=== PATIENT | female | born 1990 | race Caucasian/White ===

== ENCOUNTER 2016-08-14 03:31 | Inpatient (IN) | payer OTHER ==
[~2016-08-14] VITALS: Ht 160 cm; Wt 71.4 kg
[~2016-08-14 03:31] MED LIST: CALC-176 PO; METF500T4 PO; PRENAT PO
[2016-08-14 03:42] VITALS: Ht 160 cm; Wt 71.4 kg
[2016-08-14 03:43] VITALS: BP 124/74; PULSE 79; RESP 19
[2016-08-14] MEDS ORDERED: LACTATED RINGER'S 1,000 ML IV SCH (04:03)
--- NOTE | 2016-08-14 04:18 | TRIAGE ---
OB Triage Datetime Report Generated by CPN: 08/14/2016 04:17 Datetime: 08/14/2016 04:16 Assessment Type: Triage Maternal Assessment Level of Consciousness: Fully Conscious DTR's/Clonus: DTRs 2+; No Clonus Headache: Denies Blurred Vision: No Respiratory Effort: Unlabored; Regular Rhythm; Equal Expansion Breath Sounds, Left: Clear and Equal Breath Sounds, Right: Clear and Equal Nausea/Vomiting: Denies RUQ Epigastric Pain: Denies Facial Edema: None Fall Risk Assessment History of Falling: (0) No Secondary Diagnosis: (0) No Ambulatory Aid: (0) Bedrest/Nurse Assist IV Therapy: (0) No Gait: (0) Normal/Bedrest/Immobile Mental Status: (0) Oriented to Own Ability Fall Score: 0 Fall Risk Score Definition: No Risk: No action required Datetime: 08/14/2016 04:14 Time of Arrival: 08/14/2016 03:25 EGA: 36.4 Arrived By: Wheelchair Arrived From: Home Chief Complaint: UC'S SINCE 0200 Movement: Present Contractions: Regular Time Contractions Began: 08/14/2016 02:00 Contractions: Q5-10MIN Rupture of Membranes: Denies Vaginal Bleeding: None Vaginal Discharge: Present Recent Sexual Intercouse: Denies Abdominal Trauma: Not Applicable Patient Complaints: Contractions Time Provider Notified: 08/14/2016 03:50 Provider Notified: REICHE Initial Plan: EFM, SVE, CALL OB Datetime: 08/14/2016 03:41 Vaginal Exam Dilatation (cms): 3.5 Effacement (%): 80 Station: -2 Exam By: Evelyn Celestin RN Membrane Status: Intact Vaginal Bleeding: Scant Cervix, Consistency: Soft Cervix, Position: Posterior Presentation 'A': Cephalic Datetime: 06/14/2016 14:33 Fall Score: 0 Fall Risk Score Definition: No Risk: No action required Datetime: 06/14/2016 14:32 EGA: 27.6
[2016-08-14] MEDS ORDERED: OXYTOCIN 30 UNITS/LR 500 ML IV PRN ×2 (04:30→18:30)
[2016-08-14] MEDS ORDERED: MISOPROSTOL 200 MCG TAB PR PRN ×2 (04:30→18:30)
[2016-08-14] MEDS ORDERED: METHYLERGONOVINE 0.2 MG INJ IM PRN ×2 (04:30→18:30)
[2016-08-14] MEDS ORDERED: BUTORPHANOL 2 MG INJ IV PRN (04:30)
[2016-08-14] MEDS ORDERED: OXYTOCIN 30 UNITS/LR 500 ML IV SCH (04:30)
[2016-08-14] MEDS ORDERED: CARBOPROST 250 MCG INJ IM PRN ×2 (04:30→18:30)
[2016-08-14] MEDS ORDERED: LIDOCAINE 1% (MPF) 30 ML INJ INJ PRN (04:30)
[2016-08-14] MEDS ORDERED: AMPICILLIN 2 GM/NS (PMX) 100 ML IV ONE (04:30)
[2016-08-14] MEDS ORDERED: LACTATED RINGER'S 1,000 ML IV PRN (04:30)
[2016-08-14] MEDS ORDERED: LACTATED RINGER'S 1,000 ML IV ONE (04:30)
[2016-08-14] MEDS ORDERED: IBUPROFEN 600 MG TAB PO PRN (04:30)
[2016-08-14 06:19] LABS: BASOPHILS % 0.3 % (0.0-2.0); EOSINOPHILS % 0.2 % (0.0-7.0); HEMATOCRIT 36.7 % (37.0-47.0); HEMOGLOBIN 12.6 g/dl (12.0-16.0); LYMPHOCYTES # 1.4 10^3/ul (0.8-2.9); LYMPHOCYTES % 18.8 % (15.0-51.0); MEAN CORPUSCULAR HEMOGLOBIN 31.4 pg (29.0-33.0); MEAN CORPUSCULAR HGB CONC 34.3 g/dl (32.0-37.0); MEAN CORPUSCULAR VOLUME 91.5 fl (82.0-101.0); MEAN PLATELET VOLUME 10.5 fl (7.4-10.4); MONOCYTE # 0.5 10^3/ul (0.3-0.9); MONOCYTES % 6.3 % (0.0-11.0); NEUTROPHIL # 5.6 10^3/ul (1.6-7.5); NEUTROPHILS % 74.4 % (39.0-77.0); PLATELET COUNT 149 10^3/UL (140-440); RED BLOOD COUNT 4.01 10^6/ul (4.20-5.40); UNCORRECTED WBC 7.6 10^3/ul (4.8-10.8); WHITE BLOOD COUNT 7.6 10^3/ul (4.8-10.8)
[2016-08-14 06:28] LABS: CONDITION 1
[2016-08-14 06:43] LABS: INR 0.88; PROTIME 11.9 Sec (12.2-14.2); PT RATIO 0.9
[2016-08-14 06:44] LABS: PARTIAL THROMBOPLASTIN TIME 32.3 Sec (25.0-35.0)
[2016-08-14] MEDS ORDERED: FENTAnyl 2MCG/ML-ROPIV 0.2% 100 ML ONE (07:31)
[2016-08-14] MEDS: AMPICILLIN 1 GM/NS (PMX) 50 ML IV SCH ×3 (07:57→15:27)
[2016-08-14] MEDS ORDERED: MINERAL OIL LIGHT 10 ML VIAL TOP PRN (10:00)
[2016-08-14] MEDS: DEXTROSE 5%-LR 1,000 ML IV SCH ×2 (11:38→12:03)
[2016-08-14] MEDS ORDERED: NALOXONE (0.4 MG/ML) INJ IV PRN (16:00)
[2016-08-14] MEDS ORDERED: FENTAnyl 2MCG/ML-ROPIV 0.2% 100 ML BAG EPI SCH (16:00)
[2016-08-14] MEDS: OXYTOCIN 30 UNITS/LR 500 ML IV SCH ×2 (16:23→18:50)
--- NOTE | 2016-08-14 17:23 | HP ---
Date/Time of Note Date/Time of Note DATE: 08/14/16 TIME: 17:20 OB - History Hx of Present Free Text/Dictation admitted with GDM at 36+ weeks in labor Last Menstrual Period: Dec 02, 2015 Estimated Due Date: Sep 07, 2016 : 2 Para: 1 Care: Good Care Ultrasounds: Normal mid trimester US Obstetrical Complications: Gestational Diabetes Medical Complications: None Past Family/Social History * Past Medical, Surgical, Family and Obstetric Histories reviewed from chart. Blood Type: O+ Rubella: immune RPR/VDRL: Negative GBS Status: Negative HBsAG: Negative OB Admission Exam Vital Signs Vital Signs Vital Signs Date Time Temp Pulse Resp B/P Pulse Ox O2 Delivery O2 Flow Rate FiO2 08/14/16 03:43 97.7 79 19 124/74 Room Air Physical Exam HEENT: WNL Heart: Rhythm Normal Lungs: Clear, Equal Abdomen: WNL Extremities: Normal Reflexes: Normal Cervical Dilatation: 4cm Effacement: 75% Station: -3 Membranes: Intact Heart Rate: 150's Accelerations: Accelerations Present Decelerations: No Decelerations Varibility: Moderate Contractions on Admission: < 5 Minutes Apart Date/Time Contractions Began: 08/18/2016 Frequency of Contractions: q 3-5 min Duration: <60 seconds Intensity: Firm Last 72 hourBlood Glucose Bedside Glucose - 72 Hours Test 08/14/16 03:43 08/14/16 07:36 08/14/16 11:35 08/14/16 14:56 Bedside Glucose 111mg/dL (70-220) 97mg/dL (70-220) 77mg/dL (70-220) 100mg/dL (70-220) Last 72 hours Lab Results CBC & BMP 08/14/16 03:52 OB Assessment/Plan Reason for admission: labor Other Assessment: 36 + weeks gestation Other plan: proceed with labor STEFANIE LOMELI MD Aug 14, 2016 17:23
--- NOTE | 2016-08-14 17:30 | LDN ---
Date/Time of Note Date/Time of Note DATE: 08/14/16 TIME: 17:23 Delivery Summary of a viable over intact perineum Placenta Delivered: Spontaneously, Intact & Complete Meconium: none Perineum intact?: No Perineal laceration: 1 Perineal laceration repair: 2 X vestibular laceration were repared with 4 0 Chromic 1st degree perineal laceration was reapired with 2 0 Chromic Patient has exophytic lesion extrudindg from posterior cervical lip 5X4X5 cm lesion Anesthesia type: Epidural Estimated blood loss: 400 Sponge & Needle done & correct: Yes All needle counts correct: Yes Any foreign bodies felt in the: No Problems: Infant Delivery Information Sex Infant Sex: male Apgars 1 Minute: 6 5 Minute: 9 Suctioning Nose & mouth suctioned at jarett: Yes Delee suction performed: Yes Umbilical Cord Umbilical cord with: 3 Vessels Cord presentations: no nuchal cord Cord Blood was obtained: Yes Mother & Baby Disposition Disposition Mom & Baby to Maternity; Good: Yes (mother and baby were recovered in good condition ) Mom transferred to: Other (Maternity ) Baby to NICU: No STEFANIE LOMELI MD Aug 14, 2016 17:30
[2016-08-14 18:15] VITALS: BP 118/58; PULSE 88; RESP 18
[2016-08-14 18:30] VITALS: BP 116/52; PULSE 92; RESP 18
[2016-08-14] MEDS ORDERED: DIBUCAINE 1% 30 GM OINT PR PRN (18:30)
[2016-08-14] MEDS ORDERED: LANOLIN 7 GM TUBE TOP PRN (18:30)
[2016-08-14] MEDS ORDERED: ZOLPIDEM 5 MG TAB PO PRN (18:30)
[2016-08-14] MEDS ORDERED: BENZOCAINE 20% 56 ML SPRAY TOP PRN (18:30)
[2016-08-14] MEDS ORDERED: ACETAMINOPHEN/CODEINE #3 TAB PO PRN ×2 (18:30)
[2016-08-14] MEDS: WITCH HAZEL/GLYCERIN PAD PR PRN (18:52)
[2016-08-14] MEDS ORDERED: GLUCAGON 1 MG INJ IM PRN (19:00)
[2016-08-14] MEDS ORDERED: DEXTROSE 50% 50 ML SYRINGE IV PRN ×2 (19:00)
[2016-08-14] MEDS ORDERED: GLUCOSE GEL 15 GRAM TUBE PO PRN ×2 (19:00)
[2016-08-14] MEDS ORDERED: GLUCOSE GEL 15 GRAM TUBE BUCCAL PRN (19:00)
[2016-08-14 19:50] VITALS: BP 111/63; PULSE 76; RESP 20
[2016-08-14] MEDS: metFORMIN (XR) 500 MG TAB PO SCH (20:04)
[2016-08-14] MEDS: ACCUCHECK XX SCH ×2 (20:55→20:59)
[2016-08-14] MEDS: MAGNESIUM HYDROXIDE 30ML CUP PO SCH (21:01)
[2016-08-14] MEDS: SENNA/DOCUSATE NA (8.6MG/50MG) TAB PO SCH (21:01)
[2016-08-14] MEDS: LACTATED RINGER'S 1,000 ML IV* SCH (22:47)
[2016-08-14] MEDS: IBUPROFEN 600 MG TAB PO SCH (23:42)
[2016-08-14] MEDS: CEPHALEXIN 500 MG CAP PO SCH (23:42)
[2016-08-15 01:30] VITALS: BP 108/59; PULSE 77; RESP 18
[2016-08-15] MEDS: LACTATED RINGER'S 1,000 ML IV* SCH ×3 (02:14→18:14)
[2016-08-15 04:40] VITALS: BP 98/55; PULSE 70; RESP 18
[2016-08-15] MEDS: IBUPROFEN 600 MG TAB PO SCH ×4 (05:33→23:39)
[2016-08-15] MEDS: CEPHALEXIN 500 MG CAP PO SCH ×3 (05:33→18:00)
[2016-08-15 07:15] LABS: BASOPHILS % 0.4 % (0.0-2.0); EOSINOPHILS % 0.6 % (0.0-7.0); HEMATOCRIT 29.1 % (37.0-47.0); LYMPHOCYTES # 1.3 10^3/ul (0.8-2.9); LYMPHOCYTES % 18.2 % (15.0-51.0); MEAN CORPUSCULAR HEMOGLOBIN 31.7 pg (29.0-33.0); MEAN CORPUSCULAR HGB CONC 34.5 g/dl (32.0-37.0); MEAN CORPUSCULAR VOLUME 91.9 fl (82.0-101.0); MEAN PLATELET VOLUME 9.3 fl (7.4-10.4); MONOCYTE # 0.4 10^3/ul (0.3-0.9); MONOCYTES % 6.4 % (0.0-11.0); NEUTROPHIL # 5.2 10^3/ul (1.6-7.5); NEUTROPHILS % 74.4 % (39.0-77.0); PLATELET COUNT 112 10^3/UL (140-440); RED BLOOD COUNT 3.16 10^6/ul (4.20-5.40); RED CELL DISTRIBUTION WIDTH 14.3 % (11.5-14.5); UNCORRECTED WBC 6.9 10^3/ul (4.8-10.8); WHITE BLOOD COUNT 6.9 10^3/ul (4.8-10.8)
[2016-08-15 07:25] LABS: CREATININE 0.4 mg/dl (0.44-1.00)
[2016-08-15 07:30] VITALS: BP 92/54; PULSE 58; RESP 18
[2016-08-15] MEDS: ACCUCHECK XX SCH ×4 (07:30→20:05)
[2016-08-15 07:36] LABS: CONDITION 1
[2016-08-15] MEDS: SENNA/DOCUSATE NA (8.6MG/50MG) TAB PO SCH ×2 (08:26→20:29)
[2016-08-15] MEDS: MAGNESIUM HYDROXIDE 30ML CUP PO SCH ×2 (08:26→20:32)
[2016-08-15] MEDS: metFORMIN (XR) 500 MG TAB PO SCH ×2 (08:27→18:00)
--- NOTE | 2016-08-15 14:47 | DS ---
Date/Time of Note Date/Time of Note home next day DATE: 08/15/16 TIME: 14:45 Obstetrical Discharge Record Final Diagnosis Final Diagnosis: delivered Other Final Diagnosis S/P vaginal delivery Vaginal Delivery Obstetrical Delivery: Spontaneous, Laceration, Repaired Complications Induction: Yes Condition on Discharge Physical Assessment Last Vitals: see nurses notes Voiding: Yes Bowel Movement: Yes Breast: Soft, non-tender, Filling Fundus: Firm Abdomen and Incision: soft BS + Episiotomy: NA Calf Tenderness: No Patient Condition: Good STEFANIE LOMELI MD Aug 15, 2016 14:47
--- NOTE | 2016-08-15 14:49 | PD.PPDC ---
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
[2016-08-15] MEDS ORDERED: METF500T3 PO (14:51)
[2016-08-15] MEDS ORDERED: IBUP-1542 PO (14:51)
[2016-08-15 16:00] VITALS: BP 115/55; PULSE 68; RESP 18
[2016-08-15] MEDS: WITCH HAZEL/GLYCERIN PAD PR PRN (19:43)
[2016-08-15 19:45] VITALS: BP 100/65; PULSE 75; RESP 20
[2016-08-16] MEDS: LACTATED RINGER'S 1,000 ML IV* SCH (02:14)
[2016-08-16 04:00] VITALS: BP 105/59; PULSE 61; RESP 19
[2016-08-16] MEDS: CEPHALEXIN 500 MG CAP PO SCH ×3 (05:32→11:46)
[2016-08-16] MEDS: IBUPROFEN 600 MG TAB PO SCH ×2 (05:32→11:45)
[2016-08-16] MEDS: ACCUCHECK XX SCH ×2 (07:30→10:05)
[2016-08-16] MEDS: SENNA/DOCUSATE NA (8.6MG/50MG) TAB PO SCH (08:48)
[2016-08-16] MEDS: metFORMIN (XR) 500 MG TAB PO SCH (08:49)
[2016-08-16] MEDS: MAGNESIUM HYDROXIDE 30ML CUP PO SCH (08:51)
[2016-08-16] MEDS ORDERED: VARICELLA VACCINE LIVE/PF 1,350 UNIT/0.5 ML ML SC* ONE (09:00)
[2016-08-16] MEDS ORDERED: DIPHTH/TET/ACEL PERTUSS (ADULT) 0.5 ML VIAL IM* ONE (09:00)
[2016-08-16] MEDS ORDERED: MEASLES,MUMPS,RUBELLA VACCINE INJ SC* ONE (09:00)
== END 2016-08-16 14:45 | disposition home or self-care (01) | DRG 775 ==
LOC: L-D 03:31 → OBT 03:31 → L-D 04:10 → PP1 18:09
PROVIDERS: ADMIT Obstetrics & Gynecology; ATTEND Obstetrics & Gynecology
PROC: 10E0XZZ Delivery of Products of Conception, External Approach (ICD-10-PCS; principal; 2016-08-14)
PROC: 0HQ9XZZ Repair Perineum Skin, External Approach (ICD-10-PCS; 2016-08-14)
PROC: 3E0234Z Introduction of Serum, Toxoid and Vaccine into Muscle, Percutaneous Approach (ICD-10-PCS; 2016-08-16)
DX: O60.14X0 Preterm labor third trimester with preterm delivery third trimester, not applicable or unspecified (principal); O24.429 Gestational diabetes mellitus in childbirth, unspecified control; O34.43 Maternal care for other abnormalities of cervix, third trimester; N88.9 Noninflammatory disorder of cervix uteri, unspecified; O70.0 First degree perineal laceration during delivery; Z23 Encounter for immunization; Z3A.36 36 weeks gestation of pregnancy; Z37.0 Single live birth
CPT/HCPCS: 36415; 62319; 82565; 82962; 84520; 85025; 85610; 85730; 86592; 86900; 86901; 90715; 90716; G0463; J0290; J2590; J3010; J7120; J7121